=== PATIENT | female | born 1950 ===

== ENCOUNTER 2021-09-30 08:54 | Inpatient (IN) | payer OTHER ==
[~2021-09-30] VITALS: Ht 157.5 cm; Wt 82.6 kg
[~2021-09-30 08:54] MED LIST: PEPCID40 MG PO; SYNTHROID75 MCG PO; ZOCOR20 MG PO; [UNRECOGNIZED DRUG - OTHER]
[2021-10-03] MEDS ORDERED: FIBER THERAPY0.52 GM (14:44)
[2021-10-06] MEDS ORDERED: OXYC1TAB9 PO (09:16)
[2021-10-06] MEDS ORDERED: INTESTINEX680 M1 PO (09:16)
[2021-10-06] MEDS ORDERED: PANTOPRAZOLE SO40 MG PO (09:17)
== END 2021-10-06 12:40 | disposition home or self-care (01) | DRG 331 ==
LOC: SURH 10-03 07:00 → O/R 10-03 09:50 → SURH 10-03 13:41
PROVIDERS: ADMIT Surgery; ATTEND Surgery
PROC: 0DBP4ZZ Excision of Rectum, Percutaneous Endoscopic Approach (ICD-10-PCS; 2021-10-03)
PROC: 0DTN4ZZ Resection of Sigmoid Colon, Percutaneous Endoscopic Approach (ICD-10-PCS; principal; 2021-10-03 07:00)
DX: K57.20 Diverticulitis of large intestine with perforation and abscess without bleeding (principal); R93.5 Abnormal findings on diagnostic imaging of other abdominal regions, including retroperitoneum; R10.32 Left lower quadrant pain; R19.5 Other fecal abnormalities; Z20.822 Contact with and (suspected) exposure to COVID-19